=== PATIENT | male | born 1970 | race Caucasian/White ===

== ENCOUNTER 2017-02-20 06:15 | Day surgery (SDC) | payer MEDICAID ==
[2017-02-19 12:33] LABS: Basophils # (auto) 0 uL; Basophils % (auto) 0.4 % (0.0-2.0); Eosinophils # (auto) 0.2 uL; Eosinophils % (auto) 2.9 % (0.0-7.0); Hemoglobin 17.3 g/dL (13.5-17.5); Lymphocytes # (auto) 2.7 uL; Lymphocytes % (auto) 43.9 % (10.0-50.0); Mean Corpuscular Hemoglobin 32.2 pg (28.0-32.0); Mean Corpuscular Hgb Conc. 33.9 g/dL (32.0-36.0); Mean Corpuscular Volume 95.2 fL (80.0-100.0); Monocytes # (auto) 0.6 uL; Monocytes % (auto) 10.5 % (0.0-12.0); Neutrophils # (auto) 2.6 uL; Neutrophils % (auto) 42.3 % (37.0-80.0); Nucleated Red Blood Cells % 0.1 %; Platelet Count (auto) 300 10^3/uL (140-450); Red Blood Cells 5.36 10^6/uL (4.5-5.90); White Blood Cell 6.1 10^3/uL (4.4-10.8)
[2017-02-19 12:49] LABS: INR 0.99 (0.9-1.15); Partial Thromboplastin Time 28.5 sec (22.64-33.71); Prothrombin Time 10.8 sec (9.37-12.3)
[2017-02-19 12:52] LABS: Urine Amorphous Crystal FEW /hpf (None Seen); Urine Bacteria FEW /hpf (None Seen); Urine Blood Negative /uL (Negative); Urine Mucus FEW (None Seen); Urine Specific Gravity 1.017 (1.001-1.035); Urine WBC 9 /hpf (0 - 3)
[2017-02-19 13:09] LABS: Albumin 4.4 g/dL (3.4-5.0); Calcium 10.2 mg/dL (8.5-10.1); Potassium 4.8 mmol/L (3.5-5.1)
[2017-02-19 13:11] LABS: BUN/Creatinine Ratio 11.2
[2017-02-19 13:15] LABS: Bilirubin, Total 0.6 mg/dL (0.2-1.0); Total Protein 8.8 g/dL (6.4-8.2)
[~2017-02-20] VITALS: Ht 170.2 cm; Wt 68.0 kg
[2017-02-20] MEDS ORDERED: ceFAZolin 1GM/50ML 50 ML IV ONE (06:38)
[2017-02-20] MEDS ORDERED: LIDOCAINE 1% HCL (LOCAL ANESTH.) INJ 20ML MDV ONE (06:48)
[2017-02-20] MEDS ORDERED: MIDAZOLAM HCL 1MG/1ML-2 ML VIAL ONE (07:08)
[2017-02-20] MEDS ORDERED: PROPOFOL 10 MG/ML 20 ML IV ONE (07:08)
[2017-02-20] MEDS ORDERED: fentaNYL CITRATE 100 MCG/2 ML VL ONE (07:08)
[2017-02-20] MEDS ORDERED: SODIUM CHLORIDE LOCK 10 ML ONE (07:08)
[2017-02-20] MEDS ORDERED: ONDANSETRON HCL 4 MG/2 ML VIAL ONE (07:08)
[2017-02-20] MEDS ORDERED: ROCURONIUM 10MG/ML 10ML VIAL IV ONE (07:40)
[2017-02-20] MEDS ORDERED: HYDROmorphone HCL 2 MG/ML VL IV PRN (08:00)
[2017-02-20] MEDS ORDERED: METOCLOPRAMIDE HCL 5MG/ml INJ 2ml VIAL IV ONE (08:00)
[2017-02-20] MEDS ORDERED: KETOROLAC TROMETH 30 MG/ML 1ML VIAL IV ONE (08:00)
[2017-02-20 09:13] VITALS: BP 117/84
== END 2017-02-20 09:28 | disposition home or self-care (01) ==
LOC: SUR 06:15
PROVIDERS: ATTEND Surgery
DX: K40.90 Unilateral inguinal hernia, without obstruction or gangrene, not specified as recurrent (principal); F17.210 Nicotine dependence, cigarettes, uncomplicated; I10 Essential (primary) hypertension; J44.9 Chronic obstructive pulmonary disease, unspecified
CPT/HCPCS: 49505; J2765; J3010; 36415; 80053; 81001; 85025; 85610; 85730; J0690; J1885; J2001; J2250; J2405; J2704

== ENCOUNTER 2017-03-20 18:58 | Emergency (ER) | payer MEDICAID ==
[~2017-03-20] VITALS: Ht 167.6 cm; Wt 68.0 kg
[2017-03-21 00:18] VITALS: BP 127/85
[2017-03-21] MEDS ORDERED: BACLOFEN 10 MG TAB ONE (01:56)
[2017-03-21] MEDS ORDERED: BACLOFEN 10 MG TAB PO ONE (02:00)
== END 2017-03-21 02:15 | disposition home or self-care (01) ==
LOC: ER 18:58
DX: J40 Bronchitis, not specified as acute or chronic (principal)
CPT/HCPCS: 87400; 87804